=== PATIENT | female | born 1950 | race Caucasian/White ===

== ENCOUNTER 2018-11-09 08:27 | Emergency (ER) | payer MEDICARE ==
[2018-11-09 08:44] VITALS: BP 124/43
--- NOTE | 2018-11-09 10:29 | UC ---
Eye Complaint HPI - HPI Summary HPI Summary: ONSET YESTERDAY OF LEFT EYE REDNESS AND IRRITATION. WOKE UP THIS MORNING WITH SOME CRUST. HAS HAD COUGH AND CONGESTION FOR THE PAST FEW DAYS. NO FEVER, NAUSEA OR VISUAL DISTURBANCE. - History of Current Complaint Chief Complaint: UCEye Stated Complaint: EYE COMPLAINT Time Seen by Provider: 11/09/18 09:11 Hx Obtained From: Patient Onset/Duration: Gradual Onset, Lasting Days - 1 DAY, Still Present Timing: Constant Severity Initially: Mild Severity Currently: Mild Pain Intensity: 1 Pain Scale Used: 0-10 Numeric Location of Injury: Conjunctiva Aggravating Factor(s): Nothing Alleviating Factor(s): Nothing Associated Signs And Symptoms: Positive: Drainage (Clear). Negative: Photophobia, Vision Impairment Bilateral - Allergies/Home Medications Allergies/Adverse Reactions: Allergies Allergy/AdvReac Type Severity Reaction Status Date / Time No Known Allergies Allergy Verified 11/09/18 08:43 PMH/Surg Hx/FS Hx/Imm Hx Previously Healthy: Yes - Surgical History Surgical History: Yes Surgery Procedure, Year, and Place: breast lumpectomy, elbow surgery, t&A - Family History Known Family History: Positive: Non-Contributory - Social History Alcohol Use: Occasionally Substance Use Type: None Smoking Status (MU): Former Smoker Review of Systems All Other Systems Reviewed And Are Negative: Yes Constitutional: Positive: Negative Eyes: Positive: Drainage, Eye Redness ENT: Positive: Nasal Discharge Respiratory: Positive: Cough Cardiovascular: Positive: Negative Gastrointestinal: Positive: Negative Physical Exam Triage Information Reviewed: Yes Appearance: Well-Appearing, No Pain Distress, Well-Nourished Vital Signs: Initial Vital Signs Temp 98.9 F 11/09/18 08:34 Pulse 66 11/09/18 08:34 Resp 18 11/09/18 08:34 BP 124/43 11/09/18 08:34 Pulse Ox 100 11/09/18 08:34 Vital Signs Reviewed: Yes Eyes: Positive: Conjunctiva Inflamed - LEFT EYE, Other: - PERRL, EOMI ENT: Positive: Hearing grossly normal Neck: Positive: Supple Respiratory: Positive: No respiratory distress, No accessory muscle use Cardiovascular: Positive: Pulses Normal Abdomen Description: Positive: Soft Musculoskeletal: Positive: No Edema Neurological: Positive: Alert Psychological: Positive: Age Appropriate Behavior Skin: Negative: Rashes Eye Complaint Course/Dx - Differential Dx/Diagnosis Provider Diagnosis: Conjunctivitis, left eye Discharge - Sign-Out/Discharge Documenting (check all that apply): Patient Departure All imaging exams completed and their final reports reviewed: No Studies - Discharge Plan Condition: Stable Disposition: HOME Prescriptions: Ciprofloxacin 0.3% OPTH.BRE* [Cipro 0.3% Opth*] 1 drop BOTH EYES Q4H #1 btl Patient Education Materials: Conjunctivitis (ED) Referrals: No Primary Care Phys,NOPCP [Primary Care Provider] - Additional Instructions: CALL THE NUMBER BELOW FOR ASSISTANCE IN ESTABLISHING WITH A PCP An additional resource available to assist in finding the appropriate physician for your health care needs is [facility] ([facility]). You may contact them by calling [phone]. - Billing Disposition and Condition Condition: STABLE Disposition: Home
== END 2018-11-09 09:37 | disposition home or self-care (01) ==
LOC: UCEAST 08:27
DX: H10.9 Unspecified conjunctivitis (principal)
CPT/HCPCS: 99201; G0463

== ENCOUNTER 2019-09-18 13:38 | Emergency (ER) | payer MEDICARE ==
[2019-09-18 14:00] VITALS: BP 140/58
--- NOTE | 2019-09-18 14:12 | UC ---
Throat Pain/Nasal López HPI - HPI Summary HPI Summary: 69 yo female presents with ?thrush. She tells me that about 2 weeks ago she developed some redness and pain to her tongue. She was in [place] at the time and saw a doctor there and was told it was thrush and was placed on nystatin swish and swallow. She used this for about 7 days and symptoms were improving. She returned [place] the [place] and saw her dentist and dentist agreed with dx of thrush. Pt continued using nystatin intermittently (about once or twice a day) for the next 5 days and symptoms nearly resolved. She stopped using it and over the last 3-4 days has noticed the redness and pain to her tongue has returned. Has a bad taste in her mouth. Denies fever, chills, diabetes (but does have a strong fam hx of dm), HIV, steroid usage, or inhalers. - History of Current Complaint Chief Complaint: UCGeneralIllness Stated Complaint: MOUTH COMPLAINT Time Seen by Provider: 09/18/19 14:12 Hx Obtained From: Patient Onset/Duration: Gradual Onset Severity: Moderate Pain Intensity: 6 Pain Scale Used: 0-10 Numeric - Allergies/Home Medications Allergies/Adverse Reactions: Allergies Allergy/AdvReac Type Severity Reaction Status Date / Time No Known Allergies Allergy Verified 09/18/19 14:00 PMH/Surg Hx/FS Hx/Imm Hx - Additional Past Medical History Additional PMH: None - Surgical History Surgical History: Yes Surgery Procedure, Year, and Place: breast lumpectomy, elbow surgery, t&A - Family History Known Family History: Positive: Non-Contributory - Social History Lives: With Family Alcohol Use: Rare Substance Use Type: None Smoking Status (MU): Former Smoker Review of Systems All Other Systems Reviewed And Are Negative: No Constitutional: Positive: Negative Skin: Positive: Negative Eyes: Positive: Negative ENT: Positive: Other - tongue pain Respiratory: Positive: Negative Cardiovascular: Positive: Negative Gastrointestinal: Positive: Negative Neurological/Mental Status: Positive: Negative Psychological: Positive: Negative Physical Exam - Summary Physical Exam Summary: GENERAL: NAD. WDWN. No pain distress. SKIN: No rashes, sores, lesions, or open wounds. HEENT: Head: AT/NC Eyes: EOM intact. Conjunctiva clear without inflammation or discharge. Ears: Hearing grossly normal. TMs intact, no bulging, erythema, or edema. Nose: Nasal mucosa pink and moist. NTTP maxillary and frontal sinus. Throat: Posterior oropharynx without exudates, erythema, or tonsillar enlargement. Uvula midline. Tongue with moderate erythema and tenderness. No coating. No oral mucosa lesions or ulcerations. NECK: Supple. Nontender. No lymphadenopathy. CHEST: CTAB. No r/r/w. No accessory muscle use. Breathing comfortably and in no distress. CV: RRR. Pulses intact. Cap refill <2seconds NEURO: Alert. PSYCH: Age appropriate behavior. Triage Information Reviewed: Yes Vital Signs: Initial Vital Signs Temp 98.9 F 09/18/19 13:56 Pulse 62 09/18/19 13:56 Resp 18 09/18/19 13:56 BP 140/58 09/18/19 13:56 Pulse Ox 100 09/18/19 13:56 Fluconazole 100 MG TAB* [Diflucan 100 MG TAB*] 100 mg PO DAILY #7 tab 09/18/19 [ Rx] Nystatin SUSPENSION* 5 ml MT QID #200 ml 09/18/19 [Rx] Vital Signs Reviewed: Yes Throat Pain/Nasal Course/Dx - Course Course Of Treatment: POC glucose 91. Suspect thrush. Given recent use of nystatin will rx for this as well as po diflucan today. - Differential Dx/Diagnosis Provider Diagnosis: Thrush Discharge ED - Sign-Out/Discharge Documenting (check all that apply): Patient Departure All imaging exams completed and their final reports reviewed: No Studies - Discharge Plan Condition: Stable Disposition: HOME Prescriptions: Fluconazole 100 MG TAB* [Diflucan 100 MG TAB*] 100 mg PO DAILY #7 tab Nystatin SUSPENSION* 5 ml MT QID #200 ml Patient Education Materials: Oral Candidiasis (ED) Referrals: No Primary Care Phys,NOPCP [Primary Care Provider] - Additional Instructions: If you develop a fever, shortness of breath, chest pain, new or worsening symptoms - please call your PCP or go to the ED immediately. Follow up with your primary doctor for blood work - Billing Disposition and Condition Condition: STABLE Disposition: Home
== END 2019-09-18 14:42 | disposition home or self-care (01) ==
LOC: UCEAST 13:38
DX: B37.9 Candidiasis, unspecified (principal); K14.6 Glossodynia; Z87.891 Personal history of nicotine dependence
CPT/HCPCS: 99212; G0463